=== PATIENT | male | born 1940 | race Caucasian/White ===

== ENCOUNTER → 2018-10-16 | Outpatient (CLI) | payer MEDICARE | END | disposition home or self-care (01) | LOC: PCVCCLINIC 14:06 | PROVIDERS: ATTEND Internal Medicine Cardiovascular Disease | DX: I10 Essential (primary) hypertension (principal); E78.00 Pure hypercholesterolemia, unspecified; R06.00 Dyspnea, unspecified; R94.31 Abnormal electrocardiogram [ECG] [EKG]; J45.909 Unspecified asthma, uncomplicated; Z79.899 Other long term (current) drug therapy | CPT/HCPCS: 93005; G0463 ==

== ENCOUNTER → 2018-11-01 | Outpatient (CLI) | payer MEDICARE ==
[~2018-11-01] MED LIST: REGADENOSON 0.4 MG/5 ML DISP.SYRIN. IV ONE
--- NOTE | 2018-11-01 10:51 | PCVCIMAG ---
APPROVED REPORT Study performed: 11/01/2018 07:34:16 EXAM: Comprehensive 2D, Doppler, and color-flow Echocardiogram Patient Location: Echo lab Status: routine BSA: 2.22 HR: 62 bpmBP: 112/76 mmHg Rhythm: LBBB Other Information Study Quality: Adequate Risk Factors: Cardiac Risk Factors: HTN, Hyperlipidemia Indications Dyspnea 2D Dimensions IVSd: 15.67 (7-11mm)LVOT Diam: 25.56 (18-24mm) LVDd: 41.86 mm PWd: 16.35 (7-11mm)Ascending Ao: 53.42 (22-36mm) LVDs: 32.64 (25-40mm) Left Atrium: 37.13 (27-40mm) Aortic Root: 43.65 mm LV Single Plane 4CH: 61.97 % LV Single Plane 2CH: 63.51 % Biplane EF: 61.8 % Volumes Left Atrial Volume (Systole) Single Plane 4CH: 41.66 mLSingle Plane 2CH: 95.25 mL LA ESV Index: 30.00 mL/m2 Aortic Valve AoV Peak Anup.: 2.98 m/s AO Peak Gr.: 35.61 mmHgLVOT Max P.09 mmHg AO Mean Gr.: 19.18 mmHgLVOT Mean P.63 mmHg AO V2 Mean: 2.07 m/sLVOT Max V: 0.88 m/s AO V2 VTI: 65.18 cmLVOT Mean V: 0.61 m/s DUANE (VTI): 1.64 [id number] VTI: 20.82 cm DUANE Vmax: 1.51 cm2 AI Vmax: 4.29 m/sSV (LVOT): 106.77 mL AI Winston: 2.90 m/s2 AI PHT: 429.10 ms Mitral Valve E/A Ratio: 0.8 MV Decel. Time: 288.96 ms MV E Max Anup.: 0.49 m/s MV A Anup.: 0.60 m/s IVRT: 162.63 ms Pulmonary Valve PV Peak Anup.: 0.89 m/sPV Peak Gr.: 3.19 mmHg Pulmonary Vein P Vein S: 0.24 m/sP Vein A: 0.37 m/s P Vein D: 0.31 m/sP Vein A Dur.: 152.2 msec P Vein S/D Ratio: 0.77 Tricuspid Valve TR Peak Anup.: 2.54 m/s TR Peak Gr.: 25.73 mmHg TV Vmax: 0.55 m/s Left Ventricle The left ventricle is normal size. There is normal LV segmental wall motion. Moderate concentric left ventricular hypertrophy. Left ventricular systolic function is normal. The left ventricular ejection fraction is within the normal range. LVEF is 60-65%. Grade I - abnormal relaxation pattern. Right Ventricle The right ventricle is normal size. The right ventricular systolic function is normal. Atria The left atrium size is normal. The right atrium size is normal. Aortic Valve The aortic valve is moderately sclerotic. Mild to moderate aortic regurgitation. There is mild valvular aortic stenosis. Calculated aortic valve area is 1.5 cm2 with maximum pressure gradient of 36 mmHg and mean pressure gradient of 19 mmHg. Mitral Valve The mitral valve is normal in structure. Mild mitral regurgitation. No evidence of mitral valve stenosis. Tricuspid Valve The tricuspid valve is normal in structure. Mild tricuspid regurgitation with PAP of 33 mmHg. Pulmonic Valve The pulmonary valve is normal in structure. There is mild pulmonic valvular regurgitation. 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 IVC is normal in size and collapses >50% with inspiration. Pericardium There is no pericardial effusion. There is no pleural effusion. <Conclusion> The left ventricle is normal size. Moderate concentric left ventricular hypertrophy. Left ventricular systolic function is normal. Grade I - abnormal relaxation pattern. The right ventricle is normal size. The left atrium size is normal. The aortic valve is moderately sclerotic. Mild to moderate aortic regurgitation. There is mild valvular aortic stenosis. Mild mitral regurgitation. Mild tricuspid regurgitation with PAP of 33 mmHg. 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
--- NOTE | 2018-11-01 12:15 | PCVCIMAG ---
APPROVED REPORT Imaging Protocol: Rest Tc-99m/Stress Tc-99m 1 day Study performed: 11/01/2018 09:39:44 Indication: Dyspnea Patient Location: Out-Patient Stress Nurse: Ronel Adams RN [place] Tech:Kristyn MISSY CmMT Ht: 6 ft 1 in Wt: 215 lbs BSA: 2.22 m2 HR: 71 bpm BP: 135/87 mmHg BMI: 28.36 Rhythm: Sinus Rhythm, RBBB Medical History Medical History: Hyperlipidemia, HTN Medications: Atorvastatin, Cartia, Celebrex, Flovent, Losartan, Prednisone, Trellegy-Ellipta HCTZ Allergies: Lotrel Cardiac Risk Factors: Age Pretest Chest Pain Characteristics: No chest pain Exercise History: Indeterminate Meds Held (24 hrs): Pt held all meds Resting Data Rest SPECT myocardial perfusion imaging was performed in supine position 45 minutes following the intravenous injection of 10.2 mCi of Tc-99m Sestamibi. Time of rest injection: 0920 Date: 11/01/2018 Administration Route: IV Administration Site: Right AC Pharmacologic Stress Pharmacologic stress test was performed by injecting Regadenoson 0.4 mg IV push over 10-15 seconds immediately followed by the intravenous injection of 31.3 mCi of Tc-99m Sestamibi. Time of stress injection: 1100 Date: 11/01/2018 Administration Route: IV Administration Site: Right AC Gated Stress SPECT was performed 45 minutes after stress injection. The images were gated to evaluate regional wall motion and calculate left ventricular ejection fraction. Stress Test Details Stress Test: Pharmacologic stress testing performed using 0.4 mg of regadenoson per 5 mL given IV over 10 seconds. Reason for pharmacologic stress test: physical limitation. HRMax Heart Rate (APMHR): 144 bpm Resting HR: 71 bpmTarget HR (85% APMHR): 122 bpm Max HR Achieved: 103 bpm % of APMHR: 71 Recovery HR: 82 bpm BP Resting BP: 135/87 mmHg Max BP: 143/74 mmHg Recovery BP: 119/83 mmHg ECG Resting ECG: Sinus Rhythm, RBBB Stress ECG: Sinus Tachycardia, RBBB ST Change: Non-ischemic Recovery ECG: Sinus Rhythm, RBBB Clinical Reason for Termination: Completed protocol Stress Symptoms: Dyspnea, Lightheaded Exercise duration: 4 min 00 sec Exercise capacity: 1.6 METs Symptoms resolved with caffeine. Study Quality Study: Good Artifact: Moderate Diaphragmatic artifact Study Data Post stress, the left ventricular ejection was 71%.. SSS: 6 SRS: 8 SDS: 0 TID = 1.18. Perfusion There is a medium area of moderately reduced uptake in the basal and mid segments of the inferior wall which is seen on the stress images as well as the resting images. This area thickens and moves normally and is most consistent with attenuation artifact. Wall Motion Normal left ventricular wall motion. Nuclear Conclusion ECG Findings: negative for ischemia Clinical Findings: non-diagnostic Nuclear Findings: negative for ischemia Exercise Capacity: not assessed Left Ventricular Function: normal This study is of low probability for inducible ischemia or prior infarct. Normal global and segmental LV systolic function. Artifact: Moderate Diaphragmatic artifact
== END | disposition home or self-care (01) ==
LOC: PCVCIMAG 08:21
PROVIDERS: ATTEND Internal Medicine Cardiovascular Disease
DX: I08.3 Combined rheumatic disorders of mitral, aortic and tricuspid valves (principal); I10 Essential (primary) hypertension; E78.00 Pure hypercholesterolemia, unspecified; I71.2 Thoracic aortic aneurysm, without rupture; R06.00 Dyspnea, unspecified; E78.5 Hyperlipidemia, unspecified
CPT/HCPCS: 78452; 93017; 93306; A9500; G0463; J2785